=== PATIENT | female | born 1995 ===

== ENCOUNTER 2018-09-05 06:30 | Inpatient (IN) | payer OTHER ==
[2018-09-05] VITALS (27 sets, daily range): BP systolic 123–179; BP diastolic 59–98
[~2018-09-05] VITALS: Ht 175.3 cm; Wt 102.6 kg
[2018-09-05] MEDS ORDERED: LACTATED RINGER'S 1000 ML IV STA (07:32)
[2018-09-05] MEDS ORDERED: LR 1,000 ML IV SCH (07:32)
--- NOTE | 2018-09-05 07:53 | HPEPDOC ---
Obstetrical History & Physical General Date of Admission Sep 05, 2018 at 07:24 History of Present Illness 22 yo at 39+2 weeks presented to L&D with the complaint of a large gush of fluid at 0600. She also endorses contractions. She denies any bleeding. She endorses normal movement. is uncomplicated. Chief Complaint: Contractions, term, LOF, term Information Provided By: Patient Age: 22 : 1 Term: 0 Pre-term: 0 Abortions: 0 Livin Care Care: Good Care Dating Final EDC: Sep 10, 2018 Final EDC for Daily Update: Sep 10, 2018 Final EDC by: LMP Antepartum Course Diagnos(e)s Obesity --> BMI 33 Past Medical History Past Obstetrical History : Past Obstetrical History: Primgravida COAL HIKER History: No pertinent history Past Medical History Medical History Obesity Surgical History: Appendectomy Family History Significant Family History: No pertinent family hx Family History Noncontributory Social History Marital Status: Family situation: Spouse/partner home Psychosocial History: No pertinent psych hx * Smoker: non-smoker Alcohol: Denies Drugs: denies Imunizations Tdap status: needs Influenza Status: needs Allergies Coded Allergies: No Known Allergies (Unverified , 09/05/18) Medications No Active Prescriptions or Reported Meds Physical Examination Physical Examination GENERAL: Alert and oriented times three. ABDOMEN: Gravid and non-tender to touch. FETUS: Is vertex (VTX) by sterile vaginal examination (SVE), fetus is vertex (VTX) by Alin. EXTREMITIES: No edema. Pelvic exam: +pooling of clear fluid on vaginal vault. Swabs performed. +nitrazine, +ferning. Gross rupture of membranes on exam. Laboratory Data 24H LABS Laboratory Tests 2 09/05/18 07:27: Serology Scanned Report Hepatitis B Testing Urine Culture: Contaminated (Mixed bita) Pertinent Laboratoy Data Blood Type: A+ RBC Antibody Screen: Negative HIV: Negative Hepatitis B: Negative Hepatitis C: Unknown Rapid Plasma Reagin: Nonreactive Rubella: Immune Varicella: Nonreactive Chlamydia/Gonorrhea: Negative Group B Streptococcus: Negative Quad Screen Test: Unknown Cystic Fibrosis: Unknown Glucose Tolerance Test: 114 Anatomy Ultrasound Placenta Location: Other (UNK. Patient transfer in and US records not found) Placenta Previa: No (UNK. Transfer in and records for US not found) Steroid Therapy Steroid Therapy: No Vaginal Examination Dilation: 3 cm Effacement: 80% Station: -2 Cervical Consistency: Soft Cervical Position: Middle Presentation: Cephalic presentation Position: Vertex (occiput) Assessment Heart Rate (FHR): 150 Variability: Moderate Accelerations: None Decelerations: None Tocometer Contractions: Yes Frequency: regular Duration: less than 60 seconds Strength: palpated as mild Assessment/Plan Assessment 22 yo at 39+2 weeks presented to L&D with grossly ruptured membranes. Clear fluid. Uncomplicated . Plan Admit for expectant management of SROM. Will augment labor as clinically indicated. Apply IV fluids. GBS negative. Clear liquid diet. Will obtain toxemia labs due to elevated BP upon arrival. Patient may have epidural as desired. Anticipate . SBAR given to DO HILLARY Horne CHRISTOPHER J. DO Sep 05, 2018 07:53
[2018-09-05 08:01] LABS: HEMATOCRIT 34.2 % (36.0-47.0); HEMOGLOBIN 11.3 g/dl (12.0-15.5); MEAN CORPUSCULAR HEMOGLOBIN 27.8 pg (27.0-33.0); PLATELET COUNT, AUTOMATED 216 10^3/uL (150-450); RED BLOOD COUNT 4.07 10^6/uL (4.00-5.40); WHITE BLOOD COUNT 10.9 10^3/uL (4.0-10.0)
[2018-09-05 08:22] LABS: ALT/SGPT 7 U/L (12-78); BILIRUBIN,TOTAL 0.2 MG/DL (0.2-1.0); LDH LACTATE DEHYDROGENASE 174 U/L (84-246); URIC ACID 3.6 MG/DL (2.6-6.0)
[2018-09-05 09:15] LABS: AMORPHOUS SEDIMENT LARGE (NEGATIVE); APPEARANCE, URINE CLOUDY (CLEAR); BACTERIA, URINE AUTO NEGATIVE (NEGATIVE); BILIRUBIN, URINE AUTO NEGATIVE (NEGATIVE); BLOOD, URINE BLOOD NEGATIVE (NEGATIVE); COLOR, URINE YELLOW (YELLOW); GLUCOSE, URINE (UA) AUTO NEGATIVE (NEGATIVE); KETONE, URINE AUTO NEGATIVE (NEGATIVE); LEUKOCYTE ESTERASE, URINE AUTO NEGATIVE (NEGATIVE); MUCUS, URINE SMALL (NEGATIVE); NITRITE, URINE AUTO NEGATIVE (NEGATIVE); PROTEIN, URINE AUTO NEGATIVE (NEGATIVE); RBC, URINE AUTO 0 /HPF (0-3); SQUAMOUS EPITHELIAL CELL UR AU 2 /HPF (0-6); UROBILINOGEN, URINE AUTO 0.2 mg/dL (0.0-2.0); WBC, URINE AUTO 0 /HPF (0-3)
[2018-09-05 09:29] LABS: CREATININE,RANDOM URINE 48.5 MG/DL; TOTAL PROTEIN,RANDOM URINE 21.9 MG/DL (0.0-12.0)
[2018-09-05] MEDS ORDERED: FENTANYL 2MCG/ML ROPIVACAINE 0.2% IN 0.9% NACL 100ML IVBAG As Ordered ONE (09:54)
--- NOTE | 2018-09-05 09:58 | IPNPDOC ---
Text Note Date of Service The patient was seen on 09/05/18. NOTE SBAR from Dr Prado at 730 NST Cat 2, mod daisha currently but mostly min daisha throughout admission Cx 5-6/90/-1/vtx well applied Desires an epidural, this OK now Recheck 12-1, sooner prn Sessions VS,Sam, I+O VS, Sam I+O Laboratory Tests 09/05/18 07:42 Red Blood Count 4.07, Mean Corpuscular Volume 84.0, Mean Corpuscular Hemoglobin 27.8, Mean Corpuscular Hemoglobin Concent 33.0, Red Cell Distribution Width 13.0, Aspartate Amino Transf (AST/SGOT) 12, Alanine Aminotransferase (ALT/SGPT) 7 L, Lactate Dehydrogenase 174, Total Bilirubin 0.2, Uric Acid 3.6 Vital Signs Date Time Temp Pulse Resp B/P (MAP) Pulse Ox O2 Delivery O2 Flow Rate FiO2 09/05/18 09:07 76 16 150/84 (106) 09/05/18 08:02 98.3 SESSIONS,NINA Faustin MD Sep 05, 2018 09:58
[2018-09-05] MEDS ORDERED: REFRIGERATOR IV KEYS XX PRN (11:00)
[2018-09-05] MEDS ORDERED: ONDANSETRON 4MG/2ML VIAL (J2405) IV PRN (11:00)
[2018-09-05] MEDS ORDERED: diphenhydrAMINE INJ 50MG/ML VIAL (J1200) IV PRN (11:00)
[2018-09-05] MEDS ORDERED: ePHEDrine SULFATE 25 MG/5 ML(5MG/ML) SYRINGE IV PRN (11:00)
[2018-09-05] MEDS ORDERED: NALOXONE INJ 0.4 MG/1 ML VIAL (J2310) IV PRN (11:00)
[2018-09-05] MEDS ORDERED: EPIDURAL/PCA KEYS XX PRN (11:00)
[2018-09-05] MEDS ORDERED: LACTATED RINGER'S 1000 ML IV PRN (11:00)
[2018-09-05] MEDS ORDERED: EPIDURAL COMMENT XX SCH (11:00)
[2018-09-05] MEDS ORDERED: FENTANYL/ROPIVACAINE/NACL BAG 100 ML EPIDURAL SCH (11:00)
[2018-09-05] MEDS ORDERED: OXYTOCIN 30 UNITS IN 0.9% NaCl 500ML IV BAG (J2590) As Ordered ONE (11:34)
--- NOTE | 2018-09-05 12:18 | IPNPDOC ---
Text Note Date of Service The patient was seen on 09/05/18. NOTE FHT Cat 2, mostly minimal variability, a few lates when started pushing, now having early decels 30 min ago was 9 cm, now c/c/pushing, small amt vtx visible with push Watching FHT closely Sessions VS,Sam, I+O VS, Sam I+O Laboratory Tests 09/05/18 07:42 Red Blood Count 4.07, Mean Corpuscular Volume 84.0, Mean Corpuscular Hemoglobin 27.8, Mean Corpuscular Hemoglobin Concent 33.0, Red Cell Distribution Width 13.0, Aspartate Amino Transf (AST/SGOT) 12, Alanine Aminotransferase (ALT/SGPT) 7 L, Lactate Dehydrogenase 174, Total Bilirubin 0.2, Uric Acid 3.6 Vital Signs Date Time Temp Pulse Resp B/P (MAP) Pulse Ox O2 Delivery O2 Flow Rate FiO2 09/05/18 10:33 85 18 139/84 (102) 09/05/18 10:31 99.1 SESSIONS,NINA Faustin MD Sep 05, 2018 12:18
[2018-09-05] MEDS ORDERED: MEASLES,MUMPS,RUBELLA VACCINE INJ (MMR-II) (90707) SC SCH (13:00)
[2018-09-05] MEDS ORDERED: RHOGAM 300 MCG (1500 IU) INJ (J2790) IM SCH (13:00)
[2018-09-05] MEDS ORDERED: DIBUCAINE 1% OINTMENT 30GM TOP PRN (13:00)
[2018-09-05] MEDS ORDERED: METOCLOPRAMIDE INJ 10MG/2ML VIAL (J2765) IV PRN (13:00)
--- NOTE | 2018-09-05 13:13 | DNPDOC ---
[facility] Delivery Note Delivery Note DATE OF DELIVERY: [id number] PREDELIVERY DIAGNOSIS: 39 2/7 weeks' gestation and labor. POST DELIVERY DIAGNOSIS: Delivered. PROCEDURE: Spontaneous vaginal delivery MANAGER CORPORATE COMMUNICATIONS: Dr. Linder ANESTHESIA: epidural ESTIMATED BLOOD LOSS: 200 mL. FINDINGS: 6 pound 9 ounce female , Score 8/9 DELIVERY SUMMARY: Called to room, vtx , great effort. No delay of the vtx or ant/post shoulders. MANDI to ROT. Vigorous baby to abd. Cord C/C by FOB. Cord blood. Placenta del'd intact. Fundus firm, pit going 999. Inner left labial/vag lac repaired with 3-0 vicryl. Good cosmesis/hemostasis. Uncomplicated. Sessions MD LINDER,NINA Faustin MD Sep 05, 2018 13:13
[2018-09-05] MEDS ORDERED: OXYTOCIN DRIP 30 UNITS in APPROPRIATE DILUENT 1 EA IV SCH (13:15)
[2018-09-05] MEDS ORDERED: LIDOCAINE 1% MDV 20ML VIAL SC ONE (15:15)
[2018-09-05] MEDS: IBUPROFEN 800 MG TAB PO PRN (15:50)
[2018-09-05] MEDS: DOCUSATE SODIUM 100 MG CAP PO SCH (21:24)
[2018-09-06] MEDS: ACETAMINOPHEN TAB 650MG DOSE (2X325MG) PO PRN ×2 (00:16→22:38)
[2018-09-06 05:43] VITALS: BP 132/81
--- NOTE | 2018-09-06 07:23 | IPNPDOC ---
Progress Note Date of Service: Sep 06, 2018 Day#: 1 Progress Note PPD 1 SUBJECT: Amarilis is a 22yo [id number] s/p uncomplicated at 39w2d after presenting with active labor, delivering at 12:42 on 09/05/18 doing well day # 1. She has been ambulating, voiding spontaneously without issue and tolerating regular diet. Bottle feeding without issue. Reports lochia is like a normal period. No f/c/n/v/CP/SOB. OBJECTIVE: VITAL SIGNS: Within normal limits, afebrile. Alert and oriented times three. Abdomen: Fundus firm at U-2. Soft, NTTP. Extremities: no pain with palpation of calves ASSESSMENT: Amarilis is a 22yo [id number] s/p uncomplicated at 39w2d after presenting with active labor, delivering at 12:42 on 09/05/18 doing well day # 1. Vitals within normal limits, afebrile, hemodynamically stable with no evidence of infection. PLAN: 1. Routine care 2. Tylenol and Motrin for pain. 3. Encourage ambulation. 4. Regular diet 5. desires nexplanon for contraception 6. Likely discharge home tomorrow if meeting all milestones Dr. Deborah Jackson MD VS, I&O, 24H, [facility] Vital Signs/I&O Vital Signs Date Time Temp Pulse Resp B/P (MAP) Pulse Ox O2 Delivery O2 Flow Rate FiO2 09/06/18 05:43 98.2 68 15 132/81 (98) I&O- Last 24 Hours up to 6 AM 09/06/18 06:00 Intake Total 2175 ml Output Total 1300 ml Balance 875 ml Laboratory Data 24H LABS Laboratory Tests 2 09/05/18 07:27: Serology Scanned Report Hepatitis B Testing 09/05/18 07:42: Nucleated Red Blood Cells % (auto) 0.0, Creatinine 0.60, Aspartate Amino Transf (AST/SGOT) 12, Alanine Aminotransferase (ALT/SGPT) 7L, Lactate Dehydrogenase 174, Total Bilirubin 0.2, Uric Acid 3.6, Syphilis Serology NONREACTIVE 09/05/18 08:17: Urine Appearance CLOUDYH, Urine Color YELLOW, Urine pH 7.0, Urine Specific [place] 1.010, Urine Protein NEGATIVE, Urine Glucose (UA) NEGATIVE, Urine Ketones NEGATIVE, Urine Urobilinogen 0.2, Urine Bilirubin NEGATIVE, Urine Leukocyte Esterase NEGATIVE, Urine Blood NEGATIVE, Urine Nitrite NEGATIVE, Urine WBC (Auto) 0, Urine RBC (Auto) 0, Urine Hyaline Casts (Auto) 0, Urine Bacteria (Auto) NEGATIVE, Urine Squamous Epithelial Cells 2, Urine Amorphous Sediment LAR GEH, Urine Mucus (Auto) SMALL, Urine Sperm (Auto) , Urine Random Creatinine 48.5, Urine Random Total Protein 21.9H CBC/BMP Laboratory Tests 09/05/18 07:42 Red Blood Count 4.07, Mean Corpuscular Volume 84.0, Mean Corpuscular Hemoglobin 27.8, Mean Corpuscular Hemoglobin Concent 33.0, Red Cell Distribution Width 13.0, Aspartate Amino Transf (AST/SGOT) 12, Alanine Aminotransferase (ALT/SGPT) 7 L, Lactate Dehydrogenase 174, Total Bilirubin 0.2, Uric Acid 3.6 Deborah Jackson MD Sep 06, 2018 07:23
[2018-09-06] MEDS: PRENATAL VITAMINS CHEWABLE TABLET PO SCH (08:19)
[2018-09-06] MEDS: DOCUSATE SODIUM 100 MG CAP PO SCH ×2 (08:19→21:08)
[2018-09-06] MEDS: IBUPROFEN 800 MG TAB PO PRN ×2 (08:20→16:13)
[2018-09-06 18:00] VITALS: BP 143/78
[2018-09-07 05:55] VITALS: BP 131/64
--- NOTE | 2018-09-07 07:34 | IPNPDOC ---
Text Note Date of Service The patient was seen on 09/07/18. NOTE PPD2 States feeling well, pain controlled with prescribed meds. Baby bonding and feeding well. No heavy VB. Lochia slowing. Ambulatory. Tolerating PO without issues. Voiding spont. No CP/LP/SOB. VSSAF NAD A&O LE no C/C/E Ut at U-2, firm a/p: Doing well. Cont routine care. D/C today. Sessions VS,Sam, I+O VSSam, I+O Vital Signs Date Time Temp Pulse Resp B/P (MAP) Pulse Ox O2 Delivery O2 Flow Rate FiO2 09/07/18 05:55 98.8 72 19 131/64 (86) SESSIONS,NINA Faustin MD Sep 07, 2018 07:34
--- NOTE | 2018-09-07 07:36 | DS.PDOC ---
Discharge Summary General Date of Admission Sep 05, 2018 at 07:24 Date of Discharge 07sep2018 Discharge Summary ADMITTING DIAGNOSES: Active labor, SROM DISCHARGE DIAGNOSES: Same, HOSPITAL COURSE: Admitted and delivery uncomplicated, . course uncomplicated. DISCHARGE MEDICATIONS: Motrin, Lanolin DISCHARGE INSTRUCTIONS: Nothing in the vagina for 6 weeks. F/U in OBGYN clinic in 6-8 weeks. Sessions Vital Signs/I&Os Vital Signs Date Time Temp Pulse Resp B/P (MAP) Pulse Ox O2 Delivery O2 Flow Rate FiO2 09/07/18 05:55 98.8 72 19 131/64 (86) Discharge Medications No Active Prescriptions or Reported Meds Allergies Coded Allergies: No Known Allergies (Unverified , 09/05/18) SESSIONSNINA MD Sep 07, 2018 07:36
[2018-09-07] MEDS: DOCUSATE SODIUM 100 MG CAP PO SCH (08:45)
[2018-09-07] MEDS: PRENATAL VITAMINS CHEWABLE TABLET PO SCH (08:45)
[2018-09-07] MEDS ORDERED: IBUP-1114 PO (09:54)
[2018-09-07] MEDS ORDERED: PRENTAB9 PO (09:54)
[2018-09-07] MEDS ORDERED: MAPA500T2 PO (09:54)
[2018-09-07] MEDS ORDERED: COLA100C5 PO (09:54)
== END 2018-09-07 11:15 | disposition home or self-care (01) | DRG 807 ==
LOC: M LDO 06:30 → M LDI 07:24 → M OBS 14:49
PROVIDERS: ADMIT Obstetrics & Gynecology; ATTEND Obstetrics & Gynecology
PROC: 10E0XZZ Delivery of Products of Conception, External Approach (ICD-10-PCS; principal; 2018-09-05)
PROC: 0HQ9XZZ Repair Perineum Skin, External Approach (ICD-10-PCS; 2018-09-05)
DX: O70.0 First degree perineal laceration during delivery (principal); Z37.0 Single live birth; Z3A.39 39 weeks gestation of pregnancy

== ENCOUNTER 2020-05-01 22:56 | Inpatient (IN) | payer OTHER ==
[~2020-05-01] VITALS: Ht 175.3 cm; Wt 101.5 kg
[~2020-05-01 22:56] MED LIST: COLA100C5 PO; IBUP-1114 PO; MAPA500T2 PO; PRENTAB9 PO
[2020-05-01 23:17] VITALS: BP 129/78
[2020-05-01] MEDS ORDERED: LR 1,000 ML IV SCH (23:26)
[2020-05-01] MEDS ORDERED: LACTATED RINGER'S 1000 ML IV STA (23:26)
[2020-05-01] MEDS ORDERED: OXYTOCIN DRIP 30 UNITS in IV 1 EA IV SCH (23:30)
--- NOTE | 2020-05-01 23:49 | HPEPDOC ---
Obstetrical History & Physical General Date of Admission 05/01/2020 History of Present Illness 24 yo @ 39+3 by LMP c/w 10 w us who presents in labor. she reports contractions and vaginal spotting. she denies decreased movement. patient reports that she is GBS negative, not annoted in the paperchart. she denies any other concerns. Chief Complaint: Contractions, term Information Provided By: Patient Age: 24 : 2 Livin Care Care: Good Care Dating Final EDC: May 05, 2020 Final EDC by: LMP 1st Trimester Date: Oct 09, 2009 Weeks + Days: 10 Estimated Date of Confinement: May 05, 2020 Antepartum Course Diagnos(e)s 1. Obesity- appropriate weight gain this 2. close interval Pre- weight (lbs.): 207 Admission Weight (lbs.): 220 Change in Weight (lbs.): 13 Past Medical History Past Obstetrical History : Past Obstetrical History: Multigravida Type of Delivery: Spontaneous Vaginal Del. Sex of Infant: Female Weight of Infant (grams): 7 (7lb) Past Medical History Medical History obesity Surgical History: Denies/None, Appendectomy Family History Significant Family History: No pertinent family hx Social History Marital Status: Family situation: Spouse/partner home Psychosocial History: No pertinent psych hx * Smoker: non-smoker Alcohol: Denies Drugs: denies Abuse Violence Screening Have you been hit/kicked/slapp: No Have you been sexually assault: No Imunizations Tdap status: current Influenza Status: current Allergies Coded Allergies: No Known Allergies (Unverified , 09/05/18) Medications Scheduled Docusate Sodium (Colace) 100 Mg Cap, 1 CAP PO BID No.137/Iron/Folic Acd ( Vitamin Tablet) 1 Tab Tab, 1 TAB PO DAILY Scheduled PRN Acetaminophen (Mapap) 500 Mg Tab, 650 MG PO Q4HP PRN for MILD PAIN (PS 1-4) Ibuprofen (Ibuprofen) 400 Mg Tab, 800 MG PO Q8HP PRN for MODERATE PAIN (PS 5-7) Physical Examination Physical Examination GENERAL: Alert and oriented times three. BREAST: . ABDOMEN: Gravid and non-tender to touch. FETUS: Is vertex by sterile vaginal examination HEART RATE: Regular rate and rhythm. LUNGS: Normal work of breathing EXTREMITIES: No edema. SVE: 5/80/BB Pertinent Laboratoy Data Blood Type: A+ RBC Antibody Screen: Negative HIV: Negative Hepatitis B: Negative Hepatitis C: Unknown Rapid Plasma Reagin: Nonreactive Rubella: Immune Varicella: Immune Chlamydia/Gonorrhea: Negative Group B Streptococcus: Negative Quad Screen Test: Unknown Cystic Fibrosis: Unknown Steroid Therapy Steroid Therapy: No Vaginal Examination Dilation: 5 cm Effacement: 80% Cervical Consistency: Soft Cervical Position: Anterior Presentation: Cephalic presentation Assessment Variability: Moderate Accelerations: Positive Decelerations: None Tocometer Frequency: regular Duration: greater than 60 seconds Multi-drug resistant Organism: No history of MDRO Assessment/Plan Assessment 24 yo @ 39+3 by LMP c/w 10 w admitted for labor at term. hemodynamically stable. Reactive NST, Pelvic proven to 7LB. EFW 3500g. GBS negative, RH positive, Rubella and Varicella Immune APC 1. Obesity, BMI 30 2. Close interval Plan Admit and orient. [employer] and consent- consented on labor augmentation with pitocin, blood transfusion, operative delivery, delivery Diet: clear Group B Streptococcus (GBS) negative. Labs and intravenous (IV) per unit protocol. Lactated Ringers (LR): Bolus 1000 mL, then at 125 mL/hr. Anticipate [normal spontaneous delivery () C-S as appropriate. MALI MERCADO MD May 01, 2020 23:49
[2020-05-01 23:58] LABS: BASO % 0.3 % (0.0-1.0); EOS # 0.1 10^3/uL (0.0-0.5); EOS % 0.8 % (0.0-3.0); HEMATOCRIT 33.3 % (36.0-47.0); HEMOGLOBIN 10.7 g/dl (12.0-15.5); LYMPH # 2.1 10^3/uL (1.5-5.0); LYMPH % 17.4 % (24.0-44.0); MEAN CORPUSCULAR HEMOGLOBIN 26.4 pg (27.0-33.0); MEAN CORPUSCULAR HGB CONC 32.1 g/dl (32.0-36.5); MONO # 0.9 10^3/uL (0.0-0.8); MONO % 7.5 % (0.0-5.0); NEUTROPHILS # 8.7 10^3/uL (1.5-8.5); NEUTROPHILS % 73.3 % (36.0-66.0); PLATELET COUNT, AUTOMATED 203 10^3/uL (150-450); RED BLOOD COUNT 4.06 10^6/uL (4.00-5.40); WHITE BLOOD COUNT 11.8 10^3/uL (4.0-10.0)
[2020-05-02] VITALS (39 sets, daily range): BP systolic 96–145; BP diastolic 51–80
[2020-05-02] MEDS ORDERED: FENTANYL 2MCG/ML ROPIVACAINE 0.2% IN 0.9% NACL 100ML IVBAG As Ordered ONE (01:02)
[2020-05-02] MEDS ORDERED: REFRIGERATOR IV KEYS XX PRN (01:32)
[2020-05-02] MEDS ORDERED: ONDANSETRON 4MG/2ML VIAL IV PRN (01:32)
[2020-05-02] MEDS ORDERED: EPIDURAL COMMENT XX SCH (01:32)
[2020-05-02] MEDS ORDERED: FENTANYL/ROPIVACAINE/NACL BAG 100 ML EPIDURAL SCH (01:32)
[2020-05-02] MEDS ORDERED: LACTATED RINGER'S 1000 ML IV PRN (01:32)
[2020-05-02] MEDS ORDERED: EPIDURAL/PCA KEYS XX PRN (01:32)
[2020-05-02] MEDS ORDERED: ePHEDrine SULFATE 25 MG/5 ML(5MG/ML) SYRINGE IV PRN (01:32)
[2020-05-02] MEDS ORDERED: diphenhydrAMINE 50MG/ML VIAL (J1200) IV PRN (01:32)
[2020-05-02] MEDS ORDERED: NALOXONE INJ 0.4MG/1ML VIAL (J2310 PER 1MG) IV PRN (01:32)
--- NOTE | 2020-05-02 04:43 | IPNPDOC ---
Obstetrical Progress Note Date of Service May 02, 2020 Subjective TO room for assessement. patient is comfortable in bed. FHT: 130, mod daisha,+accels,-Decels---cat I tracing SVE: C/C/0 [place]: 4-5/10 A/P Active labor, complete now. will start pushing promptly. Anticipate MALI MERCADO MD May 02, 2020 04:43
--- NOTE | 2020-05-02 06:09 | DNPDOC ---
[facility] Delivery Note Delivery Note DATE OF DELIVERY: 05/02/2020 PREDELIVERY DIAGNOSIS: 39+3/7 weeks' gestation and labor. POST DELIVERY DIAGNOSIS: Delivered. PROCEDURE: Spontaneous vaginal delivery BOTTLE AND GLASS INSPECTOR: Dr.Diane Mercado ANESTHESIA: Epidural ESTIMATED BLOOD LOSS: 300 mL. FINDINGS: 9pound 5 ounce male infant, Score 9/9, no nuchal cord DELIVERY SUMMARY: Patient is a 24 -year-old 2 now para 2 who was admitted to labor and delivery in labor. she Progressed to complete dilation at and pushed to an at of a live male infant in position AO with restitution to RICHARD . Shoulders were delivered and the corpus immediately followed. was placed on the maternal abdomen, crying and active, mouth and nose bulb suctioned. Cord was clamped x2 and cut by the father of the baby under my direction after 1 minute of delayed cord clamping. Placenta delivered spontaneously and intact by mechanism with a 3 vessel cord at. Uterine hemostasis was achieved with rapid infusion IV Pitocin and uterine fundal massage . Perineal and vaginal inspection revealed a first degree laceration repaired in the usual fashion with a 2-0 Vicryl with good hemostasis obtained. EBL 300 mL. At the close of delivery all lap counts, instrument counts, and needle counts were correct and verified.. MALI MERCADO MD May 02, 2020 06:09
[2020-05-02] MEDS ORDERED: OXYTOCIN DRIP 30 UNITS in IV 1 EA IV SCH (06:19)
[2020-05-02] MEDS ORDERED: MOM 30ML SUSPENSION UDC PO PRN (06:30)
[2020-05-02] MEDS ORDERED: DIBUCAINE 1% OINTMENT 30GM TOP PRN (06:30)
[2020-05-02] MEDS ORDERED: PROMETHAZINE 25 MG TAB PO PRN (06:30)
[2020-05-02] MEDS: IBUPROFEN 800 MG TAB PO PRN ×2 (08:17→17:02)
[2020-05-02] MEDS: DOCUSATE SODIUM 100 MG CAP PO SCH ×2 (08:17→20:14)
[2020-05-02] MEDS: PRENATAL VITAMINS CHEWABLE TABLET PO SCH (08:17)
[2020-05-02] MEDS: FERROUS SULFATE 325MG TAB PO SCH (09:29)
[2020-05-02] MEDS ORDERED: SLF 3 ML SYR IV PRN (09:45)
[2020-05-02] MEDS: SLF 3 ML SYR IV SCH ×2 (14:00→23:04)
[2020-05-02] MEDS: ACETAMINOPHEN 500 MG TAB PO PRN (20:14)
[2020-05-03 06:00] VITALS: BP_SYST 124; BP_SYST 130; BP_DIAS 61; BP_DIAS 77
[2020-05-03] MEDS: SLF 3 ML SYR IV SCH (06:00)
[2020-05-03] MEDS: ACETAMINOPHEN 500 MG TAB PO PRN (07:47)
[2020-05-03] MEDS: PRENATAL VITAMINS CHEWABLE TABLET PO SCH (07:47)
[2020-05-03] MEDS: FERROUS SULFATE 325MG TAB PO SCH (07:47)
[2020-05-03] MEDS: DOCUSATE SODIUM 100 MG CAP PO SCH (07:47)
[2020-05-03] MEDS ORDERED: IBUP-1114 PO (09:06)
[2020-05-03] MEDS ORDERED: DOCU100C16 PO (09:06)
[2020-05-03] MEDS ORDERED: DIBU10OI TOP (09:06)
--- NOTE | 2020-05-03 10:21 | IPNPDOC ---
Progress Note Date of Service: May 03, 2020 Day#: 2 Progress Note SUBJECT: Amarilis is a 24yo s/p doing well PPD#2. Patient reporting issues with pain control as she cannot have motrin/toradol for anaphylaxis. She has been tolerating a regular diet, voiding spontaneously without difficulty. She is formula feeding her . OBJECTIVE: VITAL SIGNS: Noted to have 1 severe-ranging BP with sitting upright with HUTCHINSON pain, normotensive when laying down with HUTCHINSON resolved, afebrile. Alert and oriented times three. Abdomen: Fundus firm at U-2. Soft, NTTP. Incision: dressing in place c/d/i ASSESSMENT: Amarilis is a 24yo s/p doing well PPD#2. Vitals within normal limits, afebrile, hemodynamically stable with no evidence of infection. PLAN: 1. Discharge to home today 2. Tylenol and Motrin PRN for pain. 3. Encourage ambulation and regular diet as tolerated. 4. Encourage regular diet as tolerated and PO hydration 5. Routine PP visit in 6 weeks in clinic. 6. Discussed return precautions at length. VS, I&O, 24H, Fishbone Vital Signs/I&O Vital Signs Date Time Temp Pulse Resp B/P (MAP) Pulse Ox O2 Delivery O2 Flow Rate FiO2 05/03/20 06:00 99.3 67 16 124/61 (82) 05/02/20 18:00 98 Room Air I&O- Last 24 Hours up to 6 AM 05/03/20 05:59 Intake Total 1800 ml Output Total 850 ml Balance 950 ml LOE AL DO May 03, 2020 10:21
--- NOTE | 2020-05-03 15:14 | IPN ---
DATE: 05/02/2020 This patient requested circumcision of her male after discussing the risks and benefits of circumcision, the medical and the nonmedical indications, the penile block and aftercare. Expressed understanding of penile block, aftercare, and bleeding. Signed the consent form. All questions were answered. A 20 minute discussion. We await clearance by the route driver salesperson. DAVID
== END 2020-05-03 12:45 | disposition home or self-care (01) | DRG 807 ==
LOC: M LDO 22:56 → M LDI 23:31 → M OBS 05-02 09:18
PROVIDERS: ADMIT Obstetrics & Gynecology; ATTEND Obstetrics & Gynecology
PROC: 0H9QXZZ Drainage of Finger Nail, External Approach (ICD-10-PCS; 2020-05-01)
PROC: 10E0XZZ Delivery of Products of Conception, External Approach (ICD-10-PCS; principal; 2020-05-02)
DX: O99.214 Obesity complicating childbirth (principal); Z37.0 Single live birth; Z3A.39 39 weeks gestation of pregnancy; O70.0 First degree perineal laceration during delivery